=== PATIENT | female | born 1980 | race Caucasian/White ===

== ENCOUNTER 2016-04-30 19:30 | Emergency (ER) | payer OTHER ==
[~2016-04-30] VITALS: Ht 175.3 cm; Wt 91.2 kg
[2016-04-30 19:30] VITALS: BP 160/94
--- NOTE | 2016-04-30 19:30 | NUR ---
PT JOEL MALIK, PREBOOK. TAKEN TO OF
--- NOTE | 2016-04-30 19:57 | NUR ---
Dr. Reyna evaluating patient
--- NOTE | 2016-04-30 20:09 | NUR ---
PT TAKEN TO ULTRASOUND
--- NOTE | 2016-04-30 20:20 | NUR ---
PT RETURN FROM ULTRASOUND
[2016-04-30 20:25] LABS: BASOPHILS # (AUTO) 1.3 K/uL (0.00-0.22); EOSINOPHILS # (AUTO) 0.2 K/uL (0-0.4); HEMATOCRIT 38.4 % (36-48); HEMOGLOBIN 12.4 g/dL (12.0-16.0); MEAN CORPUSCULAR HEMOGLOBIN 27 pg (27-31); MEAN CORPUSCULAR HGB CONC 32 g/dL (33-37); MEAN CORPUSCULAR VOLUME 84 fL (80-94); MONOCYTES # (AUTO) 0.6 K/uL (0.8-1.0); NEUTROPHILS # (AUTO) 10.7 K/uL (1.8-7.7); PLATELET COUNT (AUTO) 333 K/uL (140-450); RED BLOOD CELL COUNT(AUTO) 4.55 MIL/uL (4.20-5.40); RED CELL DISTRIBUTION WIDTH 13.1 % (11.6-13.7); WHITE BLOOD COUNT (AUTO) 16.8 K/uL (4.8-10.8)
[2016-04-30 20:34] LABS: ANION GAP 11.4 (8-16); CALCIUM 8.2 mg/dL (8.5-10.1); CARBON DIOXIDE 29.2 mmol/L (21-32); CREATININE 0.6 mg/dL (0.6-1.3); POTASSIUM 3.6 mmol/L (3.5-5.1)
[2016-04-30 20:42] LABS: ALBUMIN 3.2 g/dL (3.4-5.0); TOTAL BILIRUBIN 0.2 mg/dL (0.0-1.0); TOTAL PROTEIN, SERUM 7.1 g/dL (6.4-8.2)
--- NOTE | 2016-04-30 21:20 | NUR ---
ALL RESULTS BACK AND NOTED BY ERMD AND [facility]
[2016-04-30 21:25] VITALS: BP 138/80
--- NOTE | 2016-04-30 21:25 | NUR ---
PATIENT BIB [employer]. PATIENT EXAMINED BY DR. HERNANDEZ .PATIENT MEDICALLY CLEARED AND RELEASED IN CUSTODY IN STABLE CONDITION. ORIGINAL PRE-BOOK FORM GIVEN TO [employer] OFFICER .
--- NOTE | 2016-04-30 21:25 | NUR ---
Patient discharged with v/s stable. Written and verbal after care instructions given and explained BY DR. HERNANDEZ. Patient verbalized understanding. Police with in custody. All questions addressed prior to discharge. Advised to follow up with PMD.
== END 2016-04-30 21:25 ==
LOC: MED 19:30
PROC: BY49ZZZ Ultrasonography of First Trimester, Single Fetus (ICD-10-PCS; principal; 2016-04-30)
DX: Z02.89 Encounter for other administrative examinations (principal); Z33.1 Pregnant state, incidental; O09.521 Supervision of elderly multigravida, first trimester
CPT/HCPCS: 36415; 76801; 80053; 81025; 84702; 85025; 86900; 86901; 99285